=== PATIENT | male | born 1990 | race Two or more races ===

== ENCOUNTER 2021-06-29 02:38 | Emergency (ER) | payer OTHER ==
[~2021-06-29] VITALS: Ht 177.8 cm; Wt 80.7 kg
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
--- NOTE | 2021-06-29 03:04 | NUR ---
PT BEING TRANSPORTED TO CT SCAN [facility]IA [facility] [place]
[2021-06-29] MEDS ORDERED: HYDROCODONE/APAP 5/325MG TABLET ONE (03:05)
[2021-06-29] MEDS ORDERED: HYDROCODONE/APAP 5/325MG TABLET PO ONE (03:30)
--- NOTE | 2021-06-29 03:31 | NUR ---
BACK FROM CT
[2021-06-29] MEDS ORDERED: AMOX-430 PO (04:21)
[2021-06-29] MEDS ORDERED: HYDR-3972 PO (04:21)
[2021-06-29] MEDS ORDERED: IBUPROFEN 400 MG TABLET ONE (04:23)
[2021-06-29] MEDS ORDERED: AMOX/CLAVULANATE 875 MG TABLET ONE (04:24)
[2021-06-29] MEDS ORDERED: IBUPROFEN 400 MG TABLET PO ONE (04:30)
[2021-06-29] MEDS ORDERED: AMOX/CLAVULANATE 875 MG TABLET PO ONE (04:30)
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
[2021-06-29 04:58] VITALS: BP 135/89
== END 2021-06-29 04:40 ==
LOC: ER 02:43
DX: S82.51XA Displaced fracture of medial malleolus of right tibia, initial encounter for closed fracture (principal); S82.491A Other fracture of shaft of right fibula, initial encounter for closed fracture; S01.21XA Laceration without foreign body of nose, initial encounter; Y08.89XA Assault by other specified means, initial encounter; Y93.89 Activity, other specified; Y92.89 Other specified places as the place of occurrence of the external cause; Y99.8 Other external cause status
CPT/HCPCS: 70450-TC; 70486-TC; 72125-TC; 73610-TC